=== PATIENT | female | born 1945 | race Caucasian/White ===

== ENCOUNTER 2022-01-30 13:40 | Outpatient (CLI) | payer MEDICARE | END 2022-01-30 13:41 | disposition home or self-care (01) | LOC: BICMAMMO 13:40 | PROVIDERS: ATTEND Family Medicine | DX: Z12.31 Encounter for screening mammogram for malignant neoplasm of breast (principal); Z13.820 Encounter for screening for osteoporosis; M85.89 Other specified disorders of bone density and structure, multiple sites; R92.1 Mammographic calcification found on diagnostic imaging of breast | CPT/HCPCS: 77063; 77067; 77080 ==

== ENCOUNTER 2023-04-25 10:47 | Outpatient (CLI) | payer MEDICARE ==
[2023-04-25 12:01] LABS: #Basophils 0.1 10x3/uL (0.0-0.2); #Eosinphils 0.1 10x3/uL (0.0-0.5); #Monocytes 0.7 10x3/uL (0.0-1.1); #Neutrophils 4.2 10x3/uL (1.5-8.4); %Basophils 0.9 % (0.0-2.0); %Eosinophils 1.2 % (0.0-6.0); %Lymphocytes 35.6 % (18.0-47.0); %Monocytes 9.2 % (0.0-10.0); %Neutrophils 52.7 % (40.0-75.0); Hemoglobin 14.7 g/dL (12.0-15.5); Mean Corpuscular HGB CONC 34.2 g/dL (32.0-36.0); Mean Corpuscular Hemoglobin 31.3 pg (27.0-33.0); Mean Corpuscular Volume 91.7 fl (81.6-98.3); Mean Platelet Volume 10.6 fl (7.4-10.4); Platelet Count 300 10x3/uL (150-450); RBC Distribution Width 12.4 % (11.5-14.5); Red Blood Cell (RBC) Count 4.69 10x6/uL (3.90-5.03)
[2023-04-25 12:14] LABS: Anion Gap 14 mmol/L (10-20); BUN (Urea Nitrogen) 16 mg/dL (9.8-20.1); Calc. Creatinine Clearance 0 mL/min (70-130); Carbon Dioxide 27 mmol/L (23-31); Chloride 101 mmol/L (98-107); Estimated GFR 76; Glucose 139 mg/dL (83-110); Potassium 4.3 mmol/L (3.5-5.1); Sodium 138 mmol/L (136-145)
== END 2023-04-25 10:48 | disposition home or self-care (01) ==
LOC: LABBT 10:47
PROVIDERS: ATTEND Specialist
DX: Z01.818 Encounter for other preprocedural examination (principal); R92.1 Mammographic calcification found on diagnostic imaging of breast
CPT/HCPCS: 71046; 80048; 85025; 93005; 93010

== ENCOUNTER 2023-04-30 06:21 | Day surgery (SDC) | payer MEDICARE ==
[2023-04-25 11:56] VITALS: BMI 29.0
[2023-04-30] MEDS ORDERED: Acetaminophen 500 MG TAB ONE (08:19)
[2023-04-30] MEDS ORDERED: Ketorolac Tromethamine 30 MG/ML VIAL ONE (08:19)
[2023-04-30] MEDS ORDERED: Bupivacaine 0.25% HCL 30 ML VIAL ONE (08:48)
[2023-04-30] MEDS ORDERED: Lidocaine 1% PF 5 ML VIAL ONE ×2 (08:48→09:08)
[2023-04-30] MEDS ORDERED: EPINEPHrine 1 MG/ML AMP ONE (08:48)
[2023-04-30] MEDS ORDERED: fentaNYL PF 100 MCG/2 ML SYRINGE ONE (08:54)
[2023-04-30] MEDS ORDERED: Promethazine HCl 25 MG/ML VIAL ONE (08:54)
[2023-04-30] MEDS ORDERED: CEFAZOLIN 2 GM VIAL ONE (08:57)
[2023-04-30] MEDS ORDERED: Sodium Chloride 0.9% 100 ML ONE (08:57)
[2023-04-30] MEDS ORDERED: PROPOFOL 200 MG/20 ML VIAL ONE (09:08)
[2023-04-30] MEDS ORDERED: Ondansetron PF 4 MG/2 ML Vial ONE (09:08)
[2023-04-30] MEDS ORDERED: Dexamethasone 20 MG/5 ML VIAL ONE (09:08)
[2023-04-30] MEDS ORDERED: ePHEDrine Sulfate 50 MG/10 ML VIAL ONE (09:08)
== END 2023-04-30 11:25 | disposition home or self-care (01) ==
LOC: SDC 06:21
PROVIDERS: ATTEND Specialist
PROC: 0HBT0ZZ Excision of Right Breast, Open Approach (ICD-10-PCS; principal; 2023-04-30)
PROC: 0HBT0ZX Excision of Right Breast, Open Approach, Diagnostic (ICD-10-PCS; 2023-04-30)
DX: D24.1 Benign neoplasm of right breast (principal); N60.11 Diffuse cystic mastopathy of right breast; R92.0 Mammographic microcalcification found on diagnostic imaging of breast; Z90.49 Acquired absence of other specified parts of digestive tract; Z79.82 Long term (current) use of aspirin
CPT/HCPCS: 19281; 76098; 88307; C1713; J0171; J1100; J1885; J2405; J2550; J2704; J3490; S0020

== ENCOUNTER 2024-04-02 08:19 | Outpatient (CLI) | payer MEDICARE | END 2024-04-02 08:20 | disposition home or self-care (01) | LOC: BICMAMMO 08:19 | PROVIDERS: ATTEND Family Medicine | DX: Z13.820 Encounter for screening for osteoporosis (principal); N95.9 Unspecified menopausal and perimenopausal disorder; M85.89 Other specified disorders of bone density and structure, multiple sites | CPT/HCPCS: 77080 ==